=== PATIENT | female | born 2000 | race American Indian/Alaskan Native ===

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

== ENCOUNTER 2022-04-05 10:58 | Emergency (ER) | payer MEDICAID, OTHER ==
[2022-04-05 12:15] VITALS: BP 113/71
== END 2022-04-06 01:30 | disposition left against medical advice (07) ==
LOC: ED 10:58
DX: R07.9 Chest pain, unspecified (principal); Z53.21 Procedure and treatment not carried out due to patient leaving prior to being seen by health care provider